=== PATIENT | male | born 1955 | race Caucasian/White ===

== ENCOUNTER 2018-08-27 09:07 | Day surgery (SDC) | payer MEDICARE ==
[~2018-08-27] VITALS: Ht 188 cm; Wt 70.9 kg
[~2018-08-27 09:07] MED LIST: BUSPAR10 MG PO; CYMBALTA30 MG PO; NEXIUM20 MG PO
[2018-08-27 09:37] LABS: BASOPHILS 0.7 % (0-2); EOSINOPHILS 3.7 % (0-7); HEMATOCRIT 41.7 % (42.0-54.0); HEMOGLOBIN 14.7 g/dL (13.5-17.5); IMMATURE GRANULOCYTES 0.3 % (0-5); LYMPHOCYTES 21.7 % (15-50); MCH 33.6 pg (26.0-34.0); MCHC 35.3 g/dL (31.0-37.0); MCV 95.4 fL (80.0-100.0); MEAN PLATELET VOLUME 9.3 fL (7.4-10.4); MONOCYTES 13.7 % (2-11); NEUTROPHILS 59.9 % (40-80); PLATELET COUNT 199 10x3/uL (130-400); RBC 4.37 10x6/uL (4.20-6.10); RDW 13.7 % (11.5-14.5); WBC 7.5 10x3/uL (4.8-10.8)
[2018-08-27 09:44] LABS: APTT 25.9 SECONDS (22.8-39.4); INR 0.97 (0.85-1.17); PROTIME 12.4 SECONDS (11.6-15.0)
[2018-08-27 09:49] LABS: CALC OSMOLALITY 281 mosm/kg (275-300); CALCIUM 8.7 mg/dL (8.5-10.1); CARBON DIOXIDE 28.6 mmol/L (21.0-32.0); CHLORIDE - SERUM 100 mmol/L (98-107); CREATININE - SERUM 0.9 mg/dL (0.6-1.3); GLUCOSE 100 mg/dL (74-106); POTASSIUM - SERUM 4.4 mmol/L (3.5-5.1); SODIUM 141 mmol/L (136-145); UREA NITROGEN 14 mg/dL (7-18); eGFR NON AFRICAN AMERICAN > 90 mL/min (90-120)
[2018-08-27 10:10] VITALS: BP 148/100; Ht 188 cm; Wt 70.9 kg
--- NOTE | 2018-08-27 13:54 | NUR ---
1340 PT DRESSED, AWAKE & ALERT. BOTH HANDS TREMBLING. PT DECLINES OFFER OF JUICE & SODA. GIVEN D/C INFORMATION INCLUDING: MED REC, RTC APPT., [facility] D/C INSTRUCTIONS, SHEET WITH LIST OF NSAIDS TO VOID, HIGH FIBER HANDOUTS. PT VOICED UNDERSTANDING. TO PRIVATE CAR PER WHEELCHAIR BY NURSE. HOME WITH FRIEND. Eagle BARBOSA R.N.
--- NOTE | 2018-08-27 17:25 | HP ---
PATIENT: MELE ACOSTA MEDICAL RECORD: [id number] ACCOUNT: [id number] LOCATION:D.OPS : 55 ADMISSION DATE: 08/27/18 PCP: AMADOR PERALES MD HISTORY AND PHYSICAL EXAMINATION PREOPERATIVE DIAGNOSIS: History of adenocarcinoma of the colon. The patient is here for surveillance colonoscopy. He has had history of colon cancer and colovesicular fistula. He has been having some difficulty with healing of the ileostomy site at the medial aspect of the site. It still has not healed completely after about 3 years. HOME MEDICINES: Nexium. ALLERGIES: HYDROCODONE. SOCIAL HISTORY: Smoker. PAST MEDICAL AND SURGICAL HISTORY: Gastroesophageal reflux, esophageal spasms, anxiety, and depression. PHYSICAL EXAMINATION: GENERAL: The patient does not appear acutely ill. HEENT: Face is ludin. CARDIOVASCULAR: Regular rhythm. PULMONARY: Nonlabored. ABDOMEN: There appears to be an incisional hernia at the ileostomy takedown site. IMPRESSION: History of adenocarcinoma of the colon, in need of surveillance colonoscopy. PLAN: Plan will be surveillance colonoscopy. TRANSINT:[id number] Voice Confirmation ID: [id number] DOCUMENT ID: [id number] BO IQBAL MD at 1725 CC: AMADOR PERALES [id number] DICTATION DATE: 08/27/18 1214 ELECTRONICS COMPUTER MECHANIC: 08/27/18 1248 [facility] 08/27/18 [id number] [place] [address]
--- NOTE | 2018-08-27 17:25 | OP ---
PATIENT NAME: MELE ACOSTA MEDICAL RECORD: [id number] :55 LOCATION:D.OPS ADMISSION DATE: SURGEON: IRON IQBAL MD DATE OF OPERATION: 08/27/2018 PREOPERATIVE DIAGNOSIS: History of adenocarcinoma of colon in need of surveillance colonoscopy. POSTOPERATIVE DIAGNOSES: History of adenocarcinoma colon in need of surveillance colonoscopy with 2 new colon polyps. PROCEDURES: 1. Total colonoscopy to cecum. 2. Hot biopsy forceps polypectomies times 2. 3. Cold endoscopic biopsies of the anastomosis. SURGEON: Iron Iqbal MD OPERATOR CAVITY PUMP: None. BLOOD LOSS: Minimal. ANESTHESIA: IV sedation. COMPLICATIONS: None. The risks, possible complications, and alternatives to the procedure were explained to the patient. He elects to proceed. ENDOSCOPIC COURSE: The patient was conveyed to the endoscopy suite electively on 08/27/2018. IV sedation was induced by the anesthesia staff. The patient was placed in the Pope position. A digital rectal examination was performed. The prostate was symmetric without nodules and somewhat enlarged. A colonoscope was inserted through the anus. It was easily advanced to the cecum. The prep was marginal. I slowly withdrew the endoscope. I irrigated and aspirated extensively. Two polyps were noted. One polyp was best seen with narrow band imaging. It was a 1.0 cm sessile polyp. The other polyp was a larger and it was semi-pedunculated and was a 2.3 cm polyp. It was removed in its entirety utilizing the hot biopsy forceps polypectomy technique. I then continued to withdraw the endoscope. Cold endoscopic biopsies were obtained of the anastomosis. A retroflexed view was obtained in the rectum. I then unretroflexed the scope and removed it under direct vision. I will see the patient in my office in 2-3 weeks. I will plan for his next surveillance colonoscopy to take place in 3 years. TRANSINT:[id number] Voice Confirmation ID: [id number] DOCUMENT ID: [id number] OPERATIVE REPORT [id number] MELE ACOSTA IRON IQBAL MD at 6004 CC: AMADOR PERALES [id number] DICTATION DATE: 08/27/18 1333 CENTRAL AISLE CASHIER: 08/27/18 1344 [facility] 08/27/18 [facility] [address] [place] [address]
== END 2018-08-27 13:40 | disposition home or self-care (01) ==
LOC: D.OPS 09:07
PROVIDERS: Anesthesiology; ATTEND Surgery
DX: Z12.11 Encounter for screening for malignant neoplasm of colon (principal); D12.4 Benign neoplasm of descending colon; D12.5 Benign neoplasm of sigmoid colon; Z85.038 Personal history of other malignant neoplasm of large intestine; Z01.812 Encounter for preprocedural laboratory examination; Z88.5 Allergy status to narcotic agent; F17.200 Nicotine dependence, unspecified, uncomplicated; K21.9 Gastro-esophageal reflux disease without esophagitis; F41.9 Anxiety disorder, unspecified; F32.9 Major depressive disorder, single episode, unspecified

== ENCOUNTER 2018-10-23 13:17 | Observation (INO) | payer MEDICARE ==
--- NOTE | 2018-10-23 14:03 | NUR ---
PT TO FLOOR VIA WHEELCHAIR. A/O X 4. UP WITH ASSISTANCE. IV SITED TO R FA, 22G, PATENT, DRSG C/D/I, NO REDNESS OR EDEMA. RM AIR. VITALS STABLE AT THIS TIME. TELE APPLIED, 74 NORMAL SINUS. DENIES PAIN AT THIS TIME. BREATHING EVEN AND UNLABORED. FALL PRECAUTIONS IN PLACE. GOWN APPLIED. SR UP X 2. NON SKID SOCKS ON. BED LOWERED AND LOCKED. CL IN REACH. WILL CTM
--- NOTE | 2018-10-23 14:43 | NUR ---
20 G IV SITED TO L HAND, PATENT, NO REDNESS OR EDEMA NOTED, DRSG C/D/I.
[2018-10-23 14:46] VITALS: BP 139/94; BMI 18.6
[2018-10-23 15:07] LABS: ALBUMIN 3.8 g/dL (3.4-5.0); ALKALINE PHOSPHATASE 57 U/L (46-116); ALT (SGPT) 157 U/L (10-68); AMYLASE - SERUM 45 U/L (25-115); BILIRUBIN - DIRECT 0.35 mg/dL (0.00-0.30); BILIRUBIN - INDIRECT 0.76 mg/dL (0.00-1.00); BILIRUBIN - TOTAL 1.11 mg/dL (0.2-1.3); CREATINE KINASE 40 UL (21-232); LIPASE 297 U/L (73-393); PRO BNP 120 pg/mL (0-125)
--- NOTE | 2018-10-23 15:09 | NUR ---
DC RECINOS STATED THAT PT MAY EAT AFTER CTA. WILL ORDER CARDIAC DIET. NO FURTHER ORDERS AT THIS TIME.
[2018-10-23 15:12] LABS: TROPONIN-I < 0.017 ng/mL (0.000-0.060)
[2018-10-23 15:20] VITALS: BP 139/94
--- NOTE | 2018-10-23 16:15 | NUR ---
PT TO CT VIA WHEELCHAIR
--- NOTE | 2018-10-23 20:15 | NUR ---
RESUMING PT CARE. PT IS ALERT LAYING IN BED. NO C/O VOICED. NO S/S FOF DISTRESS NOTED. BED IN LOW POSITION WITH CALL LIGHT IN REACH. SIDE RAILS UP X 2. WILL CONTINUE TO MONITOR PT AND FOLLOW PLAN OF CARE.
[2018-10-23 20:17] VITALS: BP 120/78
[2018-10-23 23:48] VITALS: BP 129/73
--- NOTE | 2018-10-24 02:10 | NUR ---
I have reviewed this patient and I concur with the Shift Assessment completed by the Licensed Practical Nurse today this shift.
[2018-10-24 05:20] VITALS: BP 129/79
[2018-10-24 05:49] LABS: BASOPHILS 0.8 % (0-2); EOSINOPHILS 10.1 % (0-7); HEMATOCRIT 33.8 % (42.0-54.0); HEMOGLOBIN 11.9 g/dL (13.5-17.5); IMMATURE GRANULOCYTES 0.5 % (0-5); LYMPHOCYTES 26.1 % (15-50); MCH 33.6 pg (26.0-34.0); MCHC 35.2 g/dL (31.0-37.0); MCV 95.5 fL (80.0-100.0); MEAN PLATELET VOLUME 10.8 fL (7.4-10.4); MONOCYTES 15.1 % (2-11); NEUTROPHILS 47.4 % (40-80); PLATELET COUNT 169 10x3/uL (130-400); RBC 3.54 10x6/uL (4.20-6.10); RDW 13.2 % (11.5-14.5); WBC 6.5 10x3/uL (4.8-10.8)
[2018-10-24 06:14] LABS: ALBUMIN 2.9 g/dL (3.4-5.0); ALKALINE PHOSPHATASE 44 U/L (46-116); ALT (SGPT) 119 U/L (10-68); BILIRUBIN - TOTAL 0.85 mg/dL (0.2-1.3); CALC OSMOLALITY 276 mosm/kg (275-300); CALCIUM 8.2 mg/dL (8.5-10.1); CARBON DIOXIDE 28.6 mmol/L (21.0-32.0); CHLORIDE - SERUM 102 mmol/L (98-107); CREATININE - SERUM 0.8 mg/dL (0.6-1.3); GLUCOSE 92 mg/dL (74-106); POTASSIUM - SERUM 3.8 mmol/L (3.5-5.1); PROTEIN - SERUM 5.9 g/dL (6.4-8.2); SODIUM 139 mmol/L (136-145); UREA NITROGEN 9 mg/dL (7-18); eGFR NON AFRICAN AMERICAN > 90 mL/min (90-120)
[2018-10-24 06:42] LABS: TROPONIN-I < 0.017 ng/mL (0.000-0.060)
[2018-10-24 08:00] VITALS: BP 138/67
--- NOTE | 2018-10-24 09:24 | NUR ---
I have reviewed this patient and I concur with the Shift Assessment completed by the Licensed Practical Nurse today this shift.
--- NOTE | 2018-10-24 09:25 | NUR ---
MORNING ROUNDS MADE. PT SITTING UP IN BED RESTING. A/O X 4. UP WITH ASSISTANCE X 1. PT DENIES PAIN AT THIS TIME. R FA IV WITH D5NS @ 75 ML/HR, PATENT, NO REDNESS OR EDEMA NOTED. IV TO L HAND, PATENT, SL, NO REDNESS OR EDEMA NOTED, DRSG C/D/I. BREATHING EVEN AND UNLABORED. NICOTINE PATCH APPLIED TO L SHOULDER. NO EDEMA NOTED. LUNGS CLEAR. FALL PRECAUTIONS IN PLACE. NON SKID SOCKS ON. BED LOWERED AND LOCKED. CL IN REACH. WILL CTM.
--- NOTE | 2018-10-24 09:35 | NUR ---
VITALS STABLE. TOOK MEDS WITHOUT DIFFICULTY
--- NOTE | 2018-10-24 11:06 | NUR ---
PT HEARD YELLING "NURSE", UPON ENTERING PT ROOM, PT STATED THAT HE HAD HAD A BM IN HIS PANTS. ASSISTED WELDING PANTOGRAPH OPERATOR AND PT TO BATHROOM AND INTO SHOWER. NEW LINENS APPLIED TO BED. STAND BY ASSIST WHILE PT IN SHOWER DUE TO WEAKNESS. ATIVAN GIVEN TO IV IN L FA, PATENT, DRSG C/D/I. NO FURTHER CONERNS AT THIS TIME. FALL PRECAUTIONS IN PLACE. BED LOWERED AND LOCKED. CL IN REACH. WILL CTM.
[2018-10-24 12:29] VITALS: BMI 18.6
[2018-10-24 12:38] VITALS: BP 130/87
--- NOTE | 2018-10-24 13:35 | NUR ---
PT TO MRI VIA WHEELCHAIR
[2018-10-24 16:30] VITALS: BP 129/81
--- NOTE | 2018-10-24 19:48 | NUR ---
PATIENT SITTING UP IN BED. NO COMPLAINTS AT THIS TIME. NO DISTRESS NOTED.
[2018-10-24 20:00] VITALS: BP 133/75
[2018-10-25] VITALS: BP 130/85
--- NOTE | 2018-10-25 02:29 | NUR ---
PATIENT LAYING IN BED WITH NO COMPLAINTS AT THIS TIME. NO DISTRESS NOTED.
[2018-10-25 04:00] VITALS: BP 126/80
[2018-10-25 07:14] LABS: HEMATOCRIT 35.5 % (42.0-54.0); HEMOGLOBIN 12.4 g/dL (13.5-17.5); IMMATURE GRANULOCYTES 0.4 % (0-5); LYMPHOCYTES 32.3 % (15-50); MCH 33.6 pg (26.0-34.0); MCHC 34.9 g/dL (31.0-37.0); MCV 96.2 fL (80.0-100.0); MEAN PLATELET VOLUME 10.5 fL (7.4-10.4); MONOCYTES 15.6 % (2-11); NEUTROPHILS 34.7 % (40-80); PLATELET COUNT 174 10x3/uL (130-400); RBC 3.69 10x6/uL (4.20-6.10); RDW 13.1 % (11.5-14.5); WBC 5.3 10x3/uL (4.8-10.8)
--- NOTE | 2018-10-25 07:20 | NUR ---
PT CALLED OUT, REQUESTING MORNING MEDICATIONS. EDUCATED PT REGARDING TIME NEXT DOSE DUE. PT VOICES UNDERSTANDING. HE QUESTIONS STAFF REGARDING D/C. INFORMED PT THAT NO NEW ORDERS FOR D/C HAD BEEN RECIEVED AT THIS TIME. PT DENIES PAIN AT THIS TIME. IV TO RIGHT FOREARM WITH D5NS @ 75ML/HR INFUSING VIA PUMP. SITE WITHOUT REDNESS OR EDEMA. SALINE LOCK TO LEFT WRIST, SITE WITHOUT REDNESS OR EDEMA. DENIES FURTHER NEEDS. ENCOURAGED TO CALL WITH NEEDS. CL WITHIN REACH. CONTINUE POC
[2018-10-25 07:36] VITALS: BP 126/87
[2018-10-25 07:43] LABS: ALBUMIN 2.9 g/dL (3.4-5.0); ALKALINE PHOSPHATASE 44 U/L (46-116); ALT (SGPT) 115 U/L (10-68); CALCIUM 8.2 mg/dL (8.5-10.1); CHLORIDE - SERUM 105 mmol/L (98-107); CREATININE - SERUM 0.8 mg/dL (0.6-1.3); GLUCOSE 96 mg/dL (74-106); PROTEIN - SERUM 5.8 g/dL (6.4-8.2); SODIUM 141 mmol/L (136-145); eGFR NON AFRICAN AMERICAN > 90 mL/min (90-120)
[2018-10-25 07:47] LABS: CALC OSMOLALITY 278 mosm/kg (275-300); POTASSIUM - SERUM 3.2 mmol/L (3.5-5.1); UREA NITROGEN 6 mg/dL (7-18)
[2018-10-25] MEDS ORDERED: MEDROL DOSE PACK4 MG PO (07:47)
[2018-10-25] MEDS ORDERED: LIBRIUM25 MG PO (07:49)
--- NOTE | 2018-10-25 08:26 | NUR ---
HARD SCRIPT GIVEN FOR LIBRIUM TAPER.
--- NOTE | 2018-10-25 09:10 | NUR ---
DISCHARGE PAPERWORK PROVIDED TO PT WITH FOLLOW UP APPOINTMENT AND PRESCRIPTION. STRESSED THE IMPORTANCE OF NOT TAKING LIBRIUM IF CONSUMING ALCOHOL. PT VOICES UNDERSTANDING. ALSO EDUCATED PT REGARDING NICOTENE PATCH. IF GOING TO SMOKE THE NEED TO REMOVE PATCH. PT VOICES UNDERSTANDING. PT AWAITING RIDE FOR D/C
--- NOTE | 2018-10-25 09:20 | MORECARE ---
CASE MANAGEMENT DISCHARGE SUMMARY PATIENT: MELE ACOSTA UNIT: [id number] ADM DATE: 10/23/18 AGE: 62 : 55 SEX: M ROOM/BED: D.5581 AUTHOR: VALENTINE,DOC PHYSICIAN: REFERRING PHYSICIAN: AMADOR PERALES MD DATE OF SERVICE: 10/25/18 Discharge Plan Patient Name: MELE ACOSTA Facility: [facility]:[place] : 1955 Planned Disposition: Home Anticipated Discharge Date: 10/25/18 Discharge Date: Expected LOS: 2 Initial Reviewer: [email or web address] Initial Review Date: 10/25/2018 Generated: 10/25/18 10:19 am Comments DCP- Discharge Planning Updated by [email or web address]: Robby Estevez on 10/25/18 8:[address] Patient Name: MELE ACOSTA Admission Status: Urgent Accout number: [id number] Admission Date: 10-23-2018 : 1955 Admission Diagnosis: Attending: AMADOR PERALES Current LOS: 2 Anticipated DC Date: 10-25-2018 Planned Disposition: Home Primary Insurance: [facility] MEDICARE SOLUTIONS Discharge Planning Comments: CM RECEIVED DISCHARGE ORDER, MET WITH PT IN ROOM TO DISCUSS DISCHARGE PLANNING AND NEEDS. PT REPORTS LIVING AT HOME INDEPENDENTLY AND ALONE. PT HAS NO MEDICAL EQUIPMENT AND NO OUTSIDE SERVICES ASSISTING IN THE HOME. CM DISCUSSED AVAILABILITY OF HOME HEALTH, REHAB SERVICES AND MEDICAL EQUIPMENT. PT DENIES DISCHARGE NEEDS, REPORTS HIS FRIEND IS BRINGING PT'S TRUCK SO PT CAN DRIVE HIMSELF HOME TODAY. CM DISCUSSED ALCHOLISM SUPPORT GROUPS THAT ARE LOCALLY AVAILABLE, OFFERED COMMUNITY LISTING. PT DECLINED AND REPORTS BEING ACTIVE AT [employer] FOR THE PAST 8 YEARS. QUALITY ANALYST NURSE NOTIFIED. Sandwich Wrapper: Robby Estevez DCPIA - Discharge Planning Initial Assessment Updated by [id number]: Robby Estevez on 10/25/18 9:15 am * Is the patient Alert and Oriented? Yes * How many steps to enter\exit or inside your home? NONE * PCP DR. PERALES * Pharmacy [facility], [address] * Preadmission Environment Home Alone * ADLs Independent * Equipment None * Other Equipment NO MEDICAL EQUIPMENT PROVIDER PREFERENCE * List name and contact numbers for known caregivers / representatives who currently or will assist patient after discharge: AUGUSTO ACOSTA, EX SPOUSE, * Verbal permission to speak to the caregivers and representatives has been obtained from the patient. N/A * Community resources currently utilized None * Please name any agencies selected above. NONE * Additional services required to return to the preadmission environment? No * Can the patient safely return to the preadmission environment? Yes * Has this patient been hospitalized within the prior 30 days at any hospital? No Patient Name: MELE ACOSTA Page [phone] at 0920 All edits/amendments must be made on the electronic document DICTATION DATE: 10/25/18918 SUPERVISOR COMMISSARY PRODUCTION: TIFF 10/25/18918 RPT#: [id number] DC DATE: STATUS: ADM IN [facility] [address] [place] [address] END OF REPORT
--- NOTE | 2018-10-25 09:48 | NUR ---
SALINE LOC TO LEFT WRIST D/C, IV TO RIGHT FOREARM D/C FOR DISCHARGE. CATHS INTACT TO BOTH CATHETERS. PT DISCHARGED WITH PERSONAL BELONGINGS TO PRIVATE VEHICLE.
--- NOTE | 2018-10-28 10:06 | EC ---
PATIENT:MELE ACOSTA DATE OF SERVICE: 10/23/18 SEX: M MEDICAL RECORD: [id number] DATE OF : 55 LOCATION:D.M2 D.213 AGE OF PATIENT: 62 ADMISSION DATE: 10/23/18 REFERRING PHYSICIAN: INTERPRETING PHYSICIAN: FLORECITA DYSON MD ECHOCARDIOGRAM REPORT ECHO CHARGES 4 ECHO COMPLETE Date: 10/24/18 CLINICAL DIAGNOSIS: AMATO, CP ECHOCARDIOGRAPHIC MEASUREMENTS (adult normal given) AC root (d.<3.7cm) 3.6 cm LV Septum d (<1.2 cm> 0.8 cm Valve Excursion 2.0 cm LV Septum (systole) 1.1 cm Left Atria (s.<4.0cm> 2.2 cm LVPW d(<1.2cm) 0.9 cm RV (d.<2.3cm) 3.1 cm LVPW (sytole) 1.1 cm LV diastole(<5.6CM) 5.0 cm MV E-F(>70mm/sec) cm LV systole 3.9 cm LVOT Diameter 1.9 cm MV exc.(>10mm) cm Est.ejection fraction (50-75%) % DOPPLER: LVIT cm/sec A 80 cm/sec E 66 cm/sec LA cm/sec RVSP 25.7 mmHg LVOT 115 cm/sec AOP1/2T m/s Asc. Ao 112 cm/sec RVOT 59 cm/sec RA cm/sec PA 62 cm/sec AV Gradient Peak 5.0 mmHg AV Mean 3.4 mmHg AV Area 2.8 cm MV Gradient Peak 3.4 mmHg MV Mean 1.5 mmHg MV Area cm COMMENTS: Ell Tutor: Usman CRUZ Supervisor Microfilm Duplicating Unit: 3 Dr. Estrada TAPE# PACS Pericardial Effusion N DATE OF SERVICE: Adequate 2D, color flow, spectral Doppler, and M-Mode. No LVH. LV internal dimension is normal. Wall motion is normal. EF is greater than or equal to 55%. Aortic valve is tricuspid. No evidence of stenosis by Doppler interrogation. Left atrium is normal at 3.2 cm. Mitral valve shows no prolapse. Trace MR. Right-sided chambers grossly normal. Trace TR. TRANSINT:[id number] Voice Confirmation ID: [id number] DOCUMENT ID: [id number] ECHOCARDIOGRAM REPORT [id number] KARLA,MELE NEDRA FLORECITA DYSON MD at 1006 CC: [id number] DICTATION DATE: 10/24/18 1104 MAIL OPENER: 10/24/18 1316 DIS IN 10/25/18 [facility] [address] [place] [address]
== END 2018-10-25 09:57 | disposition home or self-care (01) ==
LOC: D.M2 13:17 → OBSVTIME 13:17 → D.M2 13:17
PROVIDERS: ADMIT Family Medicine; ATTEND Family Medicine
DX: M43.17 Spondylolisthesis, lumbosacral region (principal); I70.213 Atherosclerosis of native arteries of extremities with intermittent claudication, bilateral legs; R07.9 Chest pain, unspecified; F41.9 Anxiety disorder, unspecified; K21.9 Gastro-esophageal reflux disease without esophagitis; F10.20 Alcohol dependence, uncomplicated; F17.210 Nicotine dependence, cigarettes, uncomplicated; R06.00 Dyspnea, unspecified; R63.6 Underweight; Z68.1 Body mass index [BMI] 19.9 or less, adult; F33.1 Major depressive disorder, recurrent, moderate

== ENCOUNTER → 2020-01-12 21:31 | Outpatient (CLI) | payer MEDICARE, MEDICAID ==
[2019-07-30] VITALS: BMI 24.4
[~2020-01-12 21:31] MED LIST changes: +LIBRIUM25 MG PO; +MEDROL DOSE PACK4 MG PO
== END | disposition home or self-care (01) ==
LOC: D.LABREF 21:31
PROVIDERS: ATTEND Podiatrist Foot & Ankle Surgery
DX: I96 Gangrene, not elsewhere classified (principal)

== ENCOUNTER 2020-02-02 20:12 | Inpatient (IN) | payer MEDICARE, MEDICAID ==
[~2020-02-02] VITALS: Ht 188 cm; Wt 62.3 kg
[2020-02-02] MEDS ORDERED: HYDROCODON-ACE1 EA10 PO (20:47)
[2020-02-02 21:25] LABS: BASOPHILS 0.2 % (0-2); EOSINOPHILS 0 % (0-7); HEMATOCRIT 35.8 % (42.0-54.0); HEMOGLOBIN 12.3 g/dL (13.5-17.5); IMMATURE GRANULOCYTES 0.3 % (0-5); LYMPHOCYTES 9.6 % (15-50); MCH 31.6 pg (26.0-34.0); MCHC 34.4 g/dL (31.0-37.0); MEAN PLATELET VOLUME 9.7 fL (7.4-10.4); MONOCYTES 9.2 % (2-11); NEUTROPHILS 80.7 % (40-80); RBC 3.89 10x6/uL (4.20-6.10); RDW 16.3 % (11.5-14.5); WBC 9.4 10x3/uL (4.8-10.8)
[2020-02-02 21:37] LABS: CALC OSMOLALITY 268 mosm/kg (275-300); CARBON DIOXIDE 20.2 mmol/L (21.0-32.0); CHLORIDE - SERUM 94 mmol/L (98-107); CREATININE - SERUM 0.9 mg/dL (0.6-1.3); GLUCOSE 84 mg/dL (74-106); POTASSIUM - SERUM 3.2 mmol/L (3.5-5.1); SODIUM 135 mmol/L (136-145); UREA NITROGEN 12 mg/dL (7-18); eGFR NON AFRICAN AMERICAN 90 mL/min (90-120)
[2020-02-02 21:51] LABS: APTT 26.4 SECONDS (22.8-39.4); INR 0.94 (0.85-1.17); PROTIME 12.6 SECONDS (11.6-15.0)
[2020-02-02 21:53] LABS: ALBUMIN 3.3 g/dL (3.4-5.0); ALKALINE PHOSPHATASE 69 U/L (30-120); ALT (SGPT) 44 U/L (10-68); BILIRUBIN - TOTAL 0.72 mg/dL (0.2-1.3); CKMB 5.3 U/L (0.0-3.6); CREATINE KINASE 138 UL (21-232); MAGNESIUM - SERUM 1.6 mg/dL (1.8-2.4); PROTEIN - SERUM 7.5 g/dL (6.4-8.2)
[2020-02-02 21:54] LABS: TROPONIN-I < 0.017 ng/mL (0.000-0.060)
[2020-02-02 22:12] LABS: PLATELET COUNT 105 10x3/uL (130-400)
[2020-02-03] VITALS (7 sets, daily range): BP systolic 124–142; BP diastolic 73–88; BMI 17.5; BMI 17.4
--- NOTE | 2020-02-03 01:31 | NUR ---
TEGADERM PLACED OVER OPEN TRACH AREA.PER EDP
[2020-02-03] MEDS ORDERED: PROZAC20 MG PO (01:59)
--- NOTE | 2020-02-03 02:00 | NUR ---
REC'D PATIENT FROM ER. PATIENT HAS 2 SKIN TEARS ON RIGHT ARM, ONE BLEEDING SLIGHTLY. CLEANED BOTH AND APPLIED BANDAID. PATIENT HAS TWO LARGER WOUNDS TO HIS RIGHT LEG. PATIENT STATED HE SPILLED "HOT RAMEN NOODLES" WHILE HE WAS EATING. 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 STITCHES ARE STILL INTACT TO THE TOES. I APPLIED A DRESSING TO TOES/FOOT. PATIENT HAD A VERY SOILED DRESSING TO HIS LEFT FOOT. I REMOVED THE DRESSING AND CLEANED HIS FOOT AND TOES. PATIENT HAS DARKENED AREAS/WOUNDS TO HIS LEFT 2ND AND 3RD TOES AND HIS 4TH TOE IS PARTIALLY AMPUTATED. PATIENT HAS SCATTERED SORES/SCABS AND BRUISES ON HIS BODY. PATIENT STATED THE WOUNDS FROM HIS FEET ARE RELATED TO POOR CIRCULATION WHILE ON A VENT IN [facility] FOR TWO MONTHS.
[2020-02-03 07:37] LABS: BASOPHILS 0.3 % (0-2); EOSINOPHILS 1.7 % (0-7); HEMATOCRIT 32.8 % (42.0-54.0); IMMATURE GRANULOCYTES 0.5 % (0-5); MCH 30.4 pg (26.0-34.0); MCHC 33.5 g/dL (31.0-37.0); MCV 90.6 fL (80.0-100.0); MEAN PLATELET VOLUME 9.6 fL (7.4-10.4); MONOCYTES 12.2 % (2-11); NEUTROPHILS 62.3 % (40-80); PLATELET COUNT 106 10x3/uL (130-400); RBC 3.62 10x6/uL (4.20-6.10); RDW 16.1 % (11.5-14.5); WBC 7.6 10x3/uL (4.8-10.8)
[2020-02-03 07:45] LABS: ALBUMIN 3.1 g/dL (3.4-5.0); ALKALINE PHOSPHATASE 64 U/L (30-120); ALT (SGPT) 40 U/L (10-68); BILIRUBIN - TOTAL 0.78 mg/dL (0.2-1.3); CALC OSMOLALITY 265 mosm/kg (275-300); CALCIUM 8.4 mg/dL (8.5-10.1); CARBON DIOXIDE 24.3 mmol/L (21.0-32.0); CHLORIDE - SERUM 98 mmol/L (98-107); CREATININE - SERUM 0.8 mg/dL (0.6-1.3); GLUCOSE 73 mg/dL (74-106); POTASSIUM - SERUM 3.1 mmol/L (3.5-5.1); PROTEIN - SERUM 6.8 g/dL (6.4-8.2); SODIUM 134 mmol/L (136-145); UREA NITROGEN 11 mg/dL (7-18); eGFR NON AFRICAN AMERICAN > 90 mL/min (90-120)
--- NOTE | 2020-02-03 15:39 | NUR ---
I have reviewed this patient and I concur with the Shift Assessment completed by the Licensed Practical Nurse today this shift.
--- NOTE | 2020-02-04 00:12 | NUR ---
I have reviewed this patient and I concur with the Shift Assessment completed by the Licensed Practical Nurse today this shift.
[2020-02-04 04:00] VITALS: BP 141/86
--- NOTE | 2020-02-04 05:39 | NUR ---
TELE MONITORS CALLED STATED PT HEART RATE DROPPED DOWN TO 31 WITH 3RD DEGREE BLOCK. PT RESTING IN BED EYES CLOSED. NO SIGNS OF DISTRESS. BREATHING EVEN AND UNLABORED. EASY TO AROUSE TO TOUCH. WILL CONTINUE TO CLOSELY MONITOR.
[2020-02-04 06:02] LABS: BASOPHILS 0.5 % (0-2); EOSINOPHILS 4.8 % (0-7); HEMATOCRIT 31.9 % (42.0-54.0); HEMOGLOBIN 11.1 g/dL (13.5-17.5); IMMATURE GRANULOCYTES 0.7 % (0-5); MCH 31.5 pg (26.0-34.0); MCHC 34.8 g/dL (31.0-37.0); MCV 90.6 fL (80.0-100.0); MEAN PLATELET VOLUME 9.7 fL (7.4-10.4); MONOCYTES 11.6 % (2-11); NEUTROPHILS 50.4 % (40-80); PLATELET COUNT 95 10x3/uL (130-400); RBC 3.52 10x6/uL (4.20-6.10)
[2020-02-04 06:03] LABS: WBC 5.6 10x3/uL (4.8-10.8)
[2020-02-04 06:19] LABS: CALCIUM 8.9 mg/dL (8.5-10.1); CHLORIDE - SERUM 99 mmol/L (98-107); CREATININE - SERUM 0.6 mg/dL (0.6-1.3); GLUCOSE 90 mg/dL (74-106); SODIUM 135 mmol/L (136-145); eGFR NON AFRICAN AMERICAN > 90 mL/min (90-120)
[2020-02-04 06:30] LABS: CALC OSMOLALITY 267 mosm/kg (275-300); CARBON DIOXIDE 31.2 mmol/L (21.0-32.0); UREA NITROGEN 7 mg/dL (7-18)
[2020-02-04 06:34] LABS: POTASSIUM - SERUM 2.5 mmol/L (3.5-5.1)
[2020-02-04 06:52] LABS: PLATELET ESTIMATE DECREASED
--- NOTE | 2020-02-04 07:15 | NUR ---
REC'D IN BED AWAKE AND ALERT. RESP EVEN AND UNLABORED WITH NO DISTRESS NOTED. CAN EXPRESS NEEDS AND NO C/O NOTED OR VOICED. ASSESSMENT COMPLETED. C/L IN REACH AT BEDSIDE.
[2020-02-04 09:58] VITALS: BP 133/82
--- NOTE | 2020-02-04 10:31 | NUR ---
PT WAS GOTTEN IN SHOWER VIA PT AND THIS NURSE BATHE PT AND CHANGED LINEN AT THIS TIME. DRESSING TO BILATERAL FEET WAS CHANGED WELL. TOLERATED WELL. C/L IN REACH AT BEDSIDE.
[2020-02-04 12:30] LABS: CALCIUM 8.9 mg/dL (8.5-10.1); CARBON DIOXIDE 30.1 mmol/L (21.0-32.0); CHLORIDE - SERUM 97 mmol/L (98-107); CREATININE - SERUM 0.7 mg/dL (0.6-1.3); GLUCOSE 106 mg/dL (74-106); SODIUM 133 mmol/L (136-145); eGFR NON AFRICAN AMERICAN > 90 mL/min (90-120)
[2020-02-04 12:36] LABS: CALC OSMOLALITY 264 mosm/kg (275-300); UREA NITROGEN 9 mg/dL (7-18)
[2020-02-04 12:39] LABS: POTASSIUM - SERUM 2.9 mmol/L (3.5-5.1)
[2020-02-04 13:33] VITALS: BP 109/69
[2020-02-04 18:25] VITALS: BP 124/75
--- NOTE | 2020-02-04 18:45 | NUR ---
I have reviewed this patient and I concur with the Shift Assessment completed by the Licensed Practical Nurse today this shift.
[2020-02-04 20:00] VITALS: BP 115/70
[2020-02-05 04:00] VITALS: BP 126/83
[2020-02-05 04:29] LABS: BASOPHILS 0.4 % (0-2); EOSINOPHILS 5.6 % (0-7); HEMATOCRIT 31.1 % (42.0-54.0); HEMOGLOBIN 10.6 g/dL (13.5-17.5); IMMATURE GRANULOCYTES 1.1 % (0-5); LYMPHOCYTES 31.9 % (15-50); MCH 31.1 pg (26.0-34.0); MCHC 34.1 g/dL (31.0-37.0); MCV 91.2 fL (80.0-100.0); MEAN PLATELET VOLUME 9.7 fL (7.4-10.4); MONOCYTES 13.4 % (2-11); NEUTROPHILS 47.6 % (40-80); RBC 3.41 10x6/uL (4.20-6.10); WBC 5.4 10x3/uL (4.8-10.8)
[2020-02-05 04:31] LABS: PLATELET COUNT 121 10x3/uL (130-400)
[2020-02-05 04:50] LABS: CALC OSMOLALITY 270 mosm/kg (275-300); CALCIUM 9.1 mg/dL (8.5-10.1); CARBON DIOXIDE 33.1 mmol/L (21.0-32.0); CHLORIDE - SERUM 101 mmol/L (98-107); CREATININE - SERUM 0.6 mg/dL (0.6-1.3); GLUCOSE 90 mg/dL (74-106); POTASSIUM - SERUM 3.5 mmol/L (3.5-5.1); SODIUM 136 mmol/L (136-145); UREA NITROGEN 11 mg/dL (7-18); eGFR NON AFRICAN AMERICAN > 90 mL/min (90-120)
--- NOTE | 2020-02-05 06:19 | NUR ---
I have reviewed this patient and I concur with the Shift Assessment completed by the Licensed Practical Nurse today this shift.
[2020-02-05 08:12] VITALS: BP 126/85
--- NOTE | 2020-02-05 11:31 | NUR ---
OT NOTE: ATTEMPTED THERAPY IN AM.. PT REFUSED STATING THAT HE DID NOT FEEL WELL. ENCOURAGED PT TO AT LEAST SIT UP IN CHAIR, BUT HE STATED THAT HE WOULD DO IT TOMORROW. DENNIS OBANDO, OTR/L
--- NOTE | 2020-02-05 11:37 | NUR ---
PT LAYING IN BED. NO NEEDS AT THIS TIME. CL IN REACH. WCTM
[2020-02-05 12:02] VITALS: BP 107/68
--- NOTE | 2020-02-05 12:43 | NUR ---
Nutrition follow-up: Pt receiving a low sodium diet PO intake has been fair Labs reviewed Wt: 130# Pt has been assessed with malnutrition RDN will order Ensure with meals RDN following.
[2020-02-05 14:11] VITALS: Ht 188 cm; Wt 62.3 kg
--- NOTE | 2020-02-05 15:17 | NUR ---
Rehab Note- Acute Inpatient Rehab prescreen order received. The patient has [facility] insurance and will require a PreAuth. Have initiated the PreAuth and faxed medical records to [facility] for review for possible auth for inpatient acute rehab stay. Will continue to await determination and follow at this time. Thank you for this referral! Delphine Elizondo RN Clinical Liaison, [facility] Rehab
--- NOTE | 2020-02-05 19:30 | NUR ---
PT IN BED, AAO X 3, RESP EVEN AND UNLABORED. PT REQUESTED PAIN MED AT THIS TIME. MEDICATED PER MD ORDER WITH TRAMADOL. NO DISTRESS NOTED, CL IN REACH, SR X 2.
[2020-02-05 20:00] VITALS: BP 105/67
[2020-02-06] VITALS (10 sets, daily range): BP systolic 85–126; BP diastolic 51–88
--- NOTE | 2020-02-06 00:37 | NUR ---
I have reviewed this patient and I concur with the Shift Assessment completed by the Licensed Practical Nurse today this shift.
[2020-02-06 05:32] LABS: BASOPHILS 0.4 % (0-2); EOSINOPHILS 4.6 % (0-7); HEMATOCRIT 30.9 % (42.0-54.0); HEMOGLOBIN 10.4 g/dL (13.5-17.5); IMMATURE GRANULOCYTES 1.5 % (0-5); LYMPHOCYTES 32.5 % (15-50); MCHC 33.7 g/dL (31.0-37.0); MONOCYTES 16.1 % (2-11); NEUTROPHILS 44.9 % (40-80); RBC 3.36 10x6/uL (4.20-6.10); RDW 16.2 % (11.5-14.5); WBC 5.4 10x3/uL (4.8-10.8)
[2020-02-06 05:45] LABS: PLATELET COUNT 149 10x3/uL (130-400)
[2020-02-06 05:50] LABS: CALC OSMOLALITY 276 mosm/kg (275-300); CALCIUM 9.4 mg/dL (8.5-10.1); CARBON DIOXIDE 31.1 mmol/L (21.0-32.0); CHLORIDE - SERUM 100 mmol/L (98-107); CREATININE - SERUM 0.7 mg/dL (0.6-1.3); GLUCOSE 96 mg/dL (74-106); SODIUM 138 mmol/L (136-145); eGFR NON AFRICAN AMERICAN > 90 mL/min (90-120)
[2020-02-06 06:00] LABS: UREA NITROGEN 14 mg/dL (7-18)
--- NOTE | 2020-02-06 07:48 | NUR ---
ALERT AND ORIENTED. LUNGS DIMINISHED BILATERALLY. HEART SOUNDS S1 AND S2 HEARD IN ALL JON. BOWEL SOUNDS ACTIVE X 4. IV TO LFA PATENT WITHOUT REDNESS. O2 IN PLACE AT 3L NC. DENIES NEEDS. BED LOW. CALL VALENTINE AND PERSONAL ITEMS IN REACH. BED ALARM ON. WILL CONTINUE TO MONITOR.
--- NOTE | 2020-02-06 11:01 | NUR ---
PREOP MEDS GIVEN AND PATIENT TAKEN FOR PROCEDURE.
--- NOTE | 2020-02-06 13:22 | NUR ---
PATIENT RETURNED FROM PROCEDURE. VITALS STABLE. RONNIE C/D/I.
--- NOTE | 2020-02-06 13:43 | NUR ---
OT NOTE: ROLLING SIDE TO SIDE WITH MIN/MOD ASSIST; SUPINE TO SIT WITH MOD ASSIST; EOB SITTING WITH FAIR BALANCE; UE/LE AROM EXS ; SIMPLE GROOMING AND FEEDING WITH SET UP DENNIS OBANDO, OTR/L [phone]
--- NOTE | 2020-02-06 14:50 | NUR ---
Rehab Note- Received a call from Yayo with [facility] stating that their medical assistant dermatology has denied the patient an acute inpatient acute rehab stay that his needs can be met at a lower level of care such as a SNF. A peer to peer can be set up before 02/09/2020 @ 6979 by contacting Yayo @ [phone] Ext [phone]. Left a VM for [facility]. Thank you for this referral! Delphine Elizondo RN CLinical Liaison, [facility] Rehab
--- NOTE | 2020-02-06 15:12 | NUR ---
DR DIAZ RICHARD D/T PATIENT BP 86/58. NO ACTIVE BLEEDING NOTED.
--- NOTE | 2020-02-06 15:33 | NUR ---
BOLUS DOSE NS STARTED PER ORDER.
--- NOTE | 2020-02-06 15:57 | NUR ---
OT NOTE: PT COMPLETED SUPINE TO SIT WITH CGA. PT COMPLETED EOB SITTING WITH SPV. PT COMPLETED FACE/HAND HYGIENE AT EOB WITH SETUP. [phone] THANK YOU,NIRALI RUTH
--- NOTE | 2020-02-06 16:06 | NUR ---
PATIENT BP 85/[address] DIAZ RICHARD.
--- NOTE | 2020-02-06 16:12 | NUR ---
SPOKE WITH DR PERALES'S NURSE WHO STATES WILL TALK TO DR PERALES AND CALL BACK.
--- NOTE | 2020-02-06 16:32 | NUR ---
SPOKE WITH DR PERALES'S NURSE WHO STATES TO CONTINUE TO MONITOR PATIENT IN CASE BECOMES SYMPTOMATIC WITH LOW BP. STATES PATIENT SOMETIMES RUNS LOW. BP NOW UP TO 98/58. WILL CONTINUE TO MONITOR.
--- NOTE | 2020-02-06 17:27 | NUR ---
PATIENT BP STILL 87/55 BUT REMAINS ASYMPTOMATIC.
--- NOTE | 2020-02-06 19:00 | NUR ---
BEDSIDE REPORT RECEIVED AND CARE OF PT ASSUMED. PT LYING IN HIGH ADAMSON'S POSITION WATCHING TV. IV TO LEFT FA SALINE LOCKED. WILL MONITOR FOR NEEDS.
--- NOTE | 2020-02-06 20:44 | NUR ---
GAVE ULTRAM 50 MG PO PER REQUEST FOR PAIN. WILL MONITOR FOR EFFECTIVENESS.
--- NOTE | 2020-02-06 20:44 | NUR ---
HS MEDICATIONS GIVEN. WILL CONTINUE TO MONITOR FOR NEEDS.
[2020-02-07 04:00] VITALS: BP 123/78
[2020-02-07 07:21] LABS: CALC OSMOLALITY 268 mosm/kg (275-300); CALCIUM 8.7 mg/dL (8.5-10.1); CHLORIDE - SERUM 101 mmol/L (98-107); CREATININE - SERUM 0.8 mg/dL (0.6-1.3); GLUCOSE 90 mg/dL (74-106); POTASSIUM - SERUM 4.1 mmol/L (3.5-5.1); SODIUM 135 mmol/L (136-145); UREA NITROGEN 11 mg/dL (7-18); eGFR NON AFRICAN AMERICAN > 90 mL/min (90-120)
--- NOTE | 2020-02-07 07:38 | NUR ---
ALERT AND ORIENTED. LUNGS DIMINISHED BILATERALLY. HEART SOUNDS S1 AND S2 HEARD IN ALL JON. BOWEL SOUNDS ACTIVE X 4. IV TO LFA PATENT WITHOUT REDNESS. DENIES NEEDS. BED LOW. CALL VALENTINE AND PERSONAL ITEMS IN REACH. WILL CONTINUE TO MONITOR.
[2020-02-07 09:34] VITALS: BP 107/70
--- NOTE | 2020-02-07 10:06 | NUR ---
DRSG CHANGED TO RIGHT UPPER THIGH PER ORDER. DRSGS CHANGED TO BILATERAL FEET.
[2020-02-07 13:32] VITALS: BP 92/57
[2020-02-07 17:45] VITALS: BP 84/63
--- NOTE | 2020-02-07 18:25 | NUR ---
RESTING IN BED. DENIES NEEDS. BED LOW. CALL VALENTINE AND PERSONAL ITEMS IN REACH. WILL CONTINUE TO MONITOR.
--- NOTE | 2020-02-07 19:41 | NUR ---
PATIENT RESTING IN BED WITH NO S/S OF DISTRESS. PATIENT DENIES NEEDS. BED IN LOWEST POSITION AND CL WITHIN REACH. ENCOURAGED THE PATIENT TO CALL IF HE HAS NEEDS. WILL CONTINUE TO MONITOR.
[2020-02-07 20:00] VITALS: BP 105/63
[2020-02-08 07:13] LABS: HEMATOCRIT 29.1 % (42.0-54.0); HEMOGLOBIN 9.6 g/dL (13.5-17.5); MCH 30.8 pg (26.0-34.0); MCV 93.3 fL (80.0-100.0); MEAN PLATELET VOLUME 9.3 fL (7.4-10.4); RBC 3.12 10x6/uL (4.20-6.10); RDW 16.9 % (11.5-14.5); WBC 7.3 10x3/uL (4.8-10.8)
[2020-02-08 07:15] LABS: PLATELET COUNT 248 10x3/uL (130-400)
[2020-02-08 07:21] LABS: CALC OSMOLALITY 273 mosm/kg (275-300); CALCIUM 8.9 mg/dL (8.5-10.1); CARBON DIOXIDE 28.6 mmol/L (21.0-32.0); CHLORIDE - SERUM 101 mmol/L (98-107); CREATININE - SERUM 0.9 mg/dL (0.6-1.3); GLUCOSE 72 mg/dL (74-106); POTASSIUM - SERUM 3.7 mmol/L (3.5-5.1); SODIUM 137 mmol/L (136-145); eGFR NON AFRICAN AMERICAN 90 mL/min (90-120)
[2020-02-08 07:26] LABS: UREA NITROGEN 14 mg/dL (7-18)
[2020-02-08 07:54] LABS: EOSINOPHILS 7 % (0-7); LYMPHOCYTES 21 % (15-50); MONOCYTES 3 % (2-11); NEUTROPHILS 67 % (40-80); PLATELET ESTIMATE NORMAL; ROULEAUX OCC; TARGET CELLS OCC; TEAR DROP CELLS OCC
[2020-02-08 09:17] VITALS: BP 105/60
[2020-02-08 13:21] VITALS: BP 140/87; BP 85/55
--- NOTE | 2020-02-08 18:37 | NUR ---
PATIENT DRESSING CHANGED AT THIS TIME. WET TO DRY COMPLETED WITH NS. WOUNDS ARE PINK WITH SMALL AMOUNT OF BLOODY DRAINAGE. OLD DRESSING WITH DARK OLD BLOODY DRAINAGE. PATIENT TOLERATED WITH SMALL AMOUNT OF PAIN. IV INTACT. ULTRAM GIVEN. CALL LIGHT WITHIN REACH.
[2020-02-08 19:09] VITALS: BP 107/62
--- NOTE | 2020-02-08 19:37 | NUR ---
PATIENT RESTING IN BED WITH NO S/S OF DISTRESS AND DENIES NEEDS AT THIS TIME. BED IN LOWEST POSITION AND CALL LIGHT WITHIN REACH. ENCOURAGED THE PATIENT TO CALL IF HE HAS NEEDS. WILL CONTINUE TO MONITOR.
[2020-02-08 20:00] VITALS: BP 93/56
--- NOTE | 2020-02-08 20:36 | NUR ---
PAGED DR. IQBAL, PLATE PAINTER APPRENTICE, IN REGARDS TO PATIENT 8/10 PAIN. PATIENT STATES PAIN IS NOT GETTING BETTER WITH ULTRAM.
[2020-02-09] VITALS: BP 107/65
[2020-02-09 04:00] VITALS: BP 97/66
[2020-02-09 08:56] VITALS: BP 97/64
[2020-02-09 12:39] VITALS: BP 96/68
--- NOTE | 2020-02-09 12:44 | NUR ---
OT NOTE: PT PERFORMED VERY WELL TODAY. SUPINE TO SIT AND SIT TO SUPINE WITH VERY MINIMAL ASSIST; IN ROOM AMB WITH WALKER WITH MIN ASSIST. SIMPLE GROOMING WITH SET UP; MOD ASSIST TO VIRIDIANA SOCKS. FEEDING WITH SET UP; PT AMB WITH OT AND PT WITH WALKER, GAIT BELT, MOD VC FOR WALKER MGMT AND STAYING UP INSIDE THE WALKER. PTS LES ARE WEAK AND SHUFFLES HIS FEET DUE TO IMPAIREMENT WITH DORSIFLEXION.. HE IS VERY UNSAFE FOR LONG DISTANCES WITHOUT ASSIST DUE TO CONSTANT CUEING FOR USE OF WALKER, HOWEVER, PT DID AMB 250 FT TODAY. EXTREMELY FATIGUED TODAY UPON RETURN TO ROOM...SEVERAL REST BREAKS REQUIRED. DENNIS OBANDO, OTR/L [phone]
--- NOTE | 2020-02-09 16:50 | MORECARE ---
CASE MANAGEMENT DISCHARGE SUMMARY PATIENT: MELE ACOSTA UNIT: [id number] ADM DATE: 02/02/20 AGE: 64 : 55 SEX: M ROOM/BED: D.2227 AUTHOR: VALENTINE,DOC PHYSICIAN: REFERRING PHYSICIAN: AMADOR PERALES MD DATE OF SERVICE: 02/09/20 Discharge Plan Patient Name: MELE ACOSTA Facility: [facility]:[place] : 1955 Planned Disposition: Detention Facility Anticipated Discharge Date: Discharge Date: Expected LOS: Initial Reviewer: [email or web address] Initial Review Date: 02/09/2020 Generated: 02/09/20 5:49 pm Comments DCP- Discharge Planning Updated by [id number]: Arline Larson on 02/09/20 3:[address] Patient Name: MELE ACOSTA Admission Status: ER Accout number: [id number] Admission Date: 02-02-2020 : 1955 Admission Diagnosis:OTH DISORDERS OF ELECTROLYTE AND FLUID BALANCE, NEC Attending: AMADOR PERALES Current LOS: 7 Anticipated DC Date: Planned Disposition: Detention Facility Primary Insurance: [facility] MEDICARE SOLUTIONS Discharge Planning Comments: CM met with patient at bedside after explaining CM role and obtaining verbal consent. CM discussed availability / needs of home health, REHAB and medical equipment. PATIENT WANTED [facility] BUT INSURANCE DENIED INPATIENT. I SPOKE WITH PATIENT TODAY AND WOULD LIKE A SNF FOR REHAB. A[facility] SIGNED, I AM FAXING REFERRAL TO [facility] WITH [facility] FOR A NETWORK OF SNF'S. WAITING CALL BACK TOMORROW. Picker Machine Operator: Arline Larson DCPIA - Discharge Planning Initial Assessment Updated by [id number]: Arline Larson on 02/09/20 4:43 pm * Is the patient Alert and Oriented? Yes * PCP DIAZ * Preadmission Environment Home Alone * ADLs Independent * Other Equipment WALKER * Community resources currently utilized Home Health * Please name any agencies selected above. [facility] * Additional services required to return to the preadmission environment? Yes * Can the patient safely return to the preadmission environment? Yes * Has this patient been hospitalized within the prior 30 days at any hospital? No Coverage Notice Reviewer: [email or web address] - Arline Larson Notice Issued Date-Time: 02/09/2020 16:44 Notice Type: Patient Choice Letter Notice Delivered To: Patient Relationship to Patient: Application Defense Manager Name: Delivery Method: HAND - Hand Delivered Karen Days: Prior Verbal Notification: Recipient Understood Notice: Yes Recipient Signature: Yes Med Rec Note Co-signed by Attending: Coverage Notice Comment: [facility] SNF ANY INSURCANSE TAKES. Patient Name: MELE ACOSTA Page [phone] at 1650 All edits/amendments must be made on the electronic document DICTATION DATE: 02/09/201649 TURNING SANDER OPERATOR: TIFF 02/09/201649 RPT#: [id number] DC DATE: STATUS: ADM IN [facility] [address] [place] [address] END OF REPORT
--- NOTE | 2020-02-09 16:58 | MORECARE ---
CASE MANAGEMENT DISCHARGE SUMMARY PATIENT: MELE ACOSTA UNIT: [id number] ADM DATE: 02/02/20 AGE: 64 : 55 SEX: M ROOM/BED: D.2227 AUTHOR: VALENTINE,DOC PHYSICIAN: REFERRING PHYSICIAN: AMADOR PERALES MD DATE OF SERVICE: 02/09/20 Discharge Plan Patient Name: MELE ACOSTA Facility: [facility]:[place] : 1955 Planned Disposition: Half-Way Facility Anticipated Discharge Date: Discharge Date: Expected LOS: Initial Reviewer: [id number] Initial Review Date: 02/09/2020 Generated: 02/09/20 5:57 pm Comments DCP- Discharge Planning Updated by [id number]: Arline Larson on 02/09/20 3:[address] Patient Name: MELE ACOSTA Admission Status: ER Accout number: [id number] Admission Date: 02-02-2020 : 1955 Admission Diagnosis:OTH DISORDERS OF ELECTROLYTE AND FLUID BALANCE, NEC Attending: AMADOR PERALES Current LOS: 7 Anticipated DC Date: Planned Disposition: Half-Way Facility Primary Insurance: [facility] MEDICARE SOLUTIONS Discharge Planning Comments: CM met with patient at bedside after explaining CM role and obtaining verbal consent. CM discussed availability / needs of home health, REHAB and medical equipment. PATIENT WANTED [facility] BUT INSURANCE DENIED INPATIENT. I SPOKE WITH PATIENT TODAY AND WOULD LIKE A SNF FOR REHAB. ANA MARIA SIGNED, I AM FAXING REFERRAL TO [facility] WITH [facility]KINS FOR A NETWORK OF SNF'S. WAITING CALL BACK TOMORROW. Equipment Detailer: Arline Larson DCPIA - Discharge Planning Initial Assessment Updated by [id number]: Arline Larson on 02/09/20 4:43 pm * Is the patient Alert and Oriented? Yes * PCP DIAZ * Preadmission Environment Home Alone * ADLs Independent * Other Equipment WALKER * Community resources currently utilized Home Health * Please name any agencies selected above. [facility] * Additional services required to return to the preadmission environment? Yes * Can the patient safely return to the preadmission environment? Yes * Has this patient been hospitalized within the prior 30 days at any hospital? No External Providers External Provider: [facility] Next Contact Date: Service Request Date: Service Type: Resolution: Reviewer: Comments: Coverage Notice Reviewer: [id number] Romulo Arline Marsha Notice Issued Date-Time: 02/09/2020 16:44 Notice Type: Patient Choice Letter Notice Delivered To: Patient Relationship to Patient: Lay Midwife Name: Delivery Method: HAND - Hand Delivered Karen Days: Prior Verbal Notification: Recipient Understood Notice: Yes Recipient Signature: Yes Med Rec Note Co-signed by Attending: Coverage Notice Comment: [facility] SNF ANY INSURCANSE TAKES. Last DP export: 02/09/20 3:50 p Patient Name: MELE ACOSTA Page [id number] at 1658 All edits/amendments must be made on the electronic document DICTATION DATE: 02/09/201657 CORRECTIVE THERAPIST: TIFF 02/09/201657 RPT#: [id number] DC DATE: STATUS: ADM IN [facility] [address] [place] [address] END OF REPORT
--- NOTE | 2020-02-09 18:42 | NUR ---
I have reviewed this patient and I concur with the Shift Assessment completed by the Licensed Practical Nurse today this shift.
[2020-02-09 18:45] VITALS: BP 112/73
[2020-02-09 20:00] VITALS: BP 115/73
--- NOTE | 2020-02-09 20:35 | NUR ---
SITTING UP IN BED. REQUESTED SANDWICH. ALERT AND ORIENTED X3. CONFUSED TO TIME. RESP IRREG. O2 @ 2LNC. RATES PAIN IN RT THIGH 8. MEDICATED WITH ULTRAM AND VISTARIL ORDERED. SALINE LOCK NOTED TO LT FOREARM. DRSG NOTED TO RT THIGH, ANKLES, TOES. SCABS AND BRUISES NOTED TO BUE. TELEMETRY SHOWS SR WITH RATE OF 76. SR ELEVATED X2. CL IN REACH. BED ALARM ON FOR PT SAFETY
--- NOTE | 2020-02-10 01:41 | NUR ---
COMPLETE LINEN CHANGE PERFORMED AT THIS TIME.
--- NOTE | 2020-02-10 01:47 | NUR ---
MEDICATED WITH VISTARIL AND ULTRAM FOR C/O PAIN IN RT LEG RATING 8. CL IN REACH.
[2020-02-10 04:00] VITALS: BP 121/80
--- NOTE | 2020-02-10 06:19 | NUR ---
MEDICATED WITH ULTRAM AND VISTARIL FOR C/O PAIN IN RT LEG RATING 8. CL IN REACH. BED ALARM ON FOR PT SAFETY.
--- NOTE | 2020-02-10 07:21 | NUR ---
ALERT AND ORIENTED. LUNGS DIMINISHED BILATERALLY. HEART SOUNDS S1 AND S2 HEARD IN ALL JON. BOWEL SOUNDS ACTIVE X 4. IV TO LFA PATENT WITHOUT REDNESS. DENIES NEEDS. BED LOW. BED ALARM ON. CALL VALENTINE AND PERSONAL ITEMS IN REACH. WILL CONTINUE TO MONITOR.
[2020-02-10 09:13] VITALS: BP 111/71
--- NOTE | 2020-02-10 10:26 | NUR ---
DRSG CHANGED TO RIGHT UPPER THIGH PER ORDER. DRSGS CHANGED TO BILATERAL FEET. WILL SPEAK WITH PRIMARY CARE ABOUT WOUND CARE ORDER FOR BILATERAL FEET. PATIENT STATES DRSGS ARE TO BE DONE DAILY AND PAINT TOES WITH IODINE PER "FOOT DOCTOR." DOES NOT KNOW NAME OF "FOOT DOCTOR."
--- NOTE | 2020-02-10 10:26 | MORECARE ---
CASE MANAGEMENT DISCHARGE SUMMARY PATIENT: MELE ACOSTA UNIT: [id number] ADM DATE: 02/02/20 AGE: 64 : 55 SEX: M ROOM/BED: D.2227 AUTHOR: VALENTINE,DOC PHYSICIAN: REFERRING PHYSICIAN: AMADOR PERALES MD DATE OF SERVICE: 02/10/20 Discharge Plan Patient Name: MELE ACOSTA Facility: [facility]:[place] : 1955 Planned Disposition: Usp Facility Anticipated Discharge Date: Discharge Date: Expected LOS: Initial Reviewer: [id number] Initial Review Date: 02/09/2020 Generated: 02/10/20 11:26 am Comments DCP- Discharge Planning Updated by [id number]: Arline Larson on 02/10/20 9:[address] Patient Name: MELE ACOSTA Admission Status: ER Accout number: [id number] Admission Date: 02-02-2020 : 1955 Admission Diagnosis:OTH DISORDERS OF ELECTROLYTE AND FLUID BALANCE, NEC Attending: AMADOR PERALES Current LOS: 8 Anticipated DC Date: Planned Disposition: Usp Facility Primary Insurance: [facility] MEDICARE SOLUTIONS Discharge Planning Comments: SPOKE WITH SNEHA GIORDANO WITH THE [facility] AND FAXED UPDATED THERAPY NOTES. SHE IS COMING OUT TO SEE THE PATIENT TODAY FOR POSSIBLE ASSISTED CARE AT THE [facility]. Division Merchandise Manager: Arline Larson DCP- Discharge Planning Updated by [id number]: Arline Larson on 02/09/20 3:[address] Patient Name: MELE ACOSTA Admission Status: ER Accout number: [id number] Admission Date: 02-02-2020 : 1955 Admission Diagnosis:OTH DISORDERS OF ELECTROLYTE AND FLUID BALANCE, NEC Attending: AMADOR PERALES Current LOS: 7 Anticipated DC Date: Planned Disposition: Usp Facility Primary Insurance: [facility] MEDICARE SOLUTIONS Discharge Planning Comments: CM met with patient at bedside after explaining CM role and obtaining verbal consent. CM discussed availability / needs of home health, REHAB and medical equipment. PATIENT WANTED [facility] BUT INSURANCE DENIED INPATIENT. I SPOKE WITH PATIENT TODAY AND WOULD LIKE A SNF FOR REHAB. ANA MARIA SIGNED, I AM FAXING REFERRAL TO [facility] WITH [facility] FOR A NETWORK OF SNF'S. WAITING CALL BACK TOMORROW. Division Merchandise Manager: Arline Larson DCPIA - Discharge Planning Initial Assessment Updated by [id number]: Arline Larson on 02/09/20 4:43 pm * Is the patient Alert and Oriented? Yes * PCP DIAZ * Preadmission Environment Home Alone * ADLs Independent * Other Equipment WALKER * Community resources currently utilized Home Health * Please name any agencies selected above. [facility] * Additional services required to return to the preadmission environment? Yes * Can the patient safely return to the preadmission environment? Yes * Has this patient been hospitalized within the prior 30 days at any hospital? No Coverage Notice Reviewer: [id number] - Arline Larson Notice Issued Date-Time: 02/09/2020 16:44 Notice Type: Patient Choice Letter Notice Delivered To: Patient Relationship to Patient: Metal Extrusion Supervisor Name: Delivery Method: HAND - Hand Delivered Karen Days: Prior Verbal Notification: Recipient Understood Notice: Yes Recipient Signature: Yes Med Rec Note Co-signed by Attending: Coverage Notice Comment: [facility] SN[facility] ANY INSURCANSE TAKES. Last DP export: 02/09/20 3:58 p Patient Name: MELE ACOSTA Page [phone] at 1026 All edits/amendments must be made on the electronic document DICTATION DATE: 02/10/20 1026 CHEMICAL SUPERVISOR: TIFF 02/10/20 1026 RPT#: [id number] DC DATE: STATUS: ADM IN [facility] [address] [place] [address] END OF REPORT
--- NOTE | 2020-02-10 10:32 | NUR ---
SPOKE WITH HORTENCIA, DR PERALES'S NURSE, WHO STATES WILL SPEAK WITH MD ABOUT WOUND CARE FOR FEET AND POSSIBLE CONSULT AND WILL CALL BACK.
--- NOTE | 2020-02-10 10:33 | NUR ---
TELEMETRY NORMAL SINUS 78 ON MONITOR.
--- NOTE | 2020-02-10 10:51 | NUR ---
CONSULT FOR DR BALDERAS PLACED PER DR PERALES.
--- NOTE | 2020-02-10 11:43 | NUR ---
PATIENT SITTING UP IN CHAIR AT BEDSIDE. DENIES NEEDS. WILL CONTINUE TO MONITOR.
[2020-02-10 12:56] VITALS: BP 92/60
--- NOTE | 2020-02-10 14:56 | NUR ---
OT NOTE: PT PERFORMED SLIGHTLY BETTER TODAY. BED MOB WITH VERY MINIMAL ASSIST; MAX ASSIST TO VIRIDIANA SOCKS; SET UP TO WASH FACE, HANDS, AND MIN ASSIST TO VIRIDIANA GOWN. UE/LE AROM EXS WHILE SITTING ON EOB. PT AMB INTO HALLWAY WITH USE OF WALKER AND MIN/MOD ASSIST. CONSTANT CUEING FOR WALKER MGMT AND WALKING INSIDE THE WALKER VS PUSHING IT LIKE AN LAWNMOWER.. PT UNABLE TO PERFORM WITHOUT CONSTANT CUES AND ASSIST WITH MOVING WALKER. DENNIS OBANDO, OTR/L 140-370
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
--- NOTE | 2020-02-10 17:18 | NUR ---
OT NOTE: PT COMPLETED SUPINE TO SIT WITH CGA. PT COMPLETED EOB SITTING WITH SPV. PT COMPLETED SIT TO STAND WITH CGA. PT COMPLETED FACE WASH WITH SETUP. 4-280 THANK YOU,NIRALI RUTH
[2020-02-10 17:51] VITALS: BP 101/69
--- NOTE | 2020-02-10 19:45 | NUR ---
LYING IN BED. DR BALDERAS JUST CHANGED PTS DRSG ON LT FOOT. ALERT AND ORIENTED TO SELF, PLACE AND SITUATION, CONFUSED TO TIME. RESP NONLABORED. O2 @ 3LNC. TELEMETRY SHOWS SB WITH RATE OF 58. SCABS NOTED ALL OVER BODY. BRUISES TO BUE AND BLE. DRSG NOTED TO RT THIGH IS C/D/I. SALINE LOCK NOTED TO LT FOREARM. DRSG NOTED TO TRACH STOMA. BED ALARM ON FOR PT SAFETY. GEN WEAKNESS NOTED. SR ELEVATED X2. CL IN REACH. DENIES PAIN.
[2020-02-10 20:00] VITALS: BP 101/52
--- NOTE | 2020-02-10 23:01 | NUR ---
LYING IN BED WITH EYES CLOSED. RESP NONLABORED. NO DISTRESS. CL IN REACH. BED ALARM ON.
[2020-02-11] VITALS: BP 127/75
--- NOTE | 2020-02-11 01:02 | NUR ---
MEDICATED WITH ULTRAM AND VISTARIL FOR C/O PAIN IN RT THIGH RATING 8. CL IN REACH. BED ALARM ON
--- NOTE | 2020-02-11 03:37 | NUR ---
LYING IN BED WITH EYES CLOSED. RESP NONLABORED. O2 IN USE. NO DISTRESS. CL IN REACH. BED ALARM ON
[2020-02-11 04:00] VITALS: BP 110/62
--- NOTE | 2020-02-11 05:51 | NUR ---
MEDICATED WITH ULTRAM AND VISTARIL FOR C/O RT LEG PAIN. LINENS CHANGED PER SUPERINTENDENT STATIONS. PT EMPTIES URINAL ON BED LINENS.
--- NOTE | 2020-02-11 08:00 | NUR ---
PT RESTING IN BED WITH EYES OPEN CALL LIGHT IN REACH WILL MONITER
--- NOTE | 2020-02-11 08:21 | MORECARE ---
CASE MANAGEMENT DISCHARGE SUMMARY PATIENT: MELE ACOSTA UNIT: [id number] ADM DATE: 02/02/20 AGE: 64 : 55 SEX: M ROOM/BED: D.2227 AUTHOR: VALENTINEDOC PHYSICIAN: REFERRING PHYSICIAN: AMADOR PERALES MD DATE OF SERVICE: 02/11/20 Discharge Plan Patient Name: MELE ACOSTA Facility: [facility]:[place] : 1955 Planned Disposition: Correction Facility Anticipated Discharge Date: Discharge Date: Expected LOS: Initial Reviewer: [id number] Initial Review Date: 02/09/2020 Generated: 02/11/20 9:20 am DCP- Discharge Planning Updated by [email or web address]: Arline Larson on 02/11/20 7:[address] Patient Name: MELE ACOSTA Admission Status: ER Accout number: [id number] Admission Date: 02-02-2020 : 1955 Admission Diagnosis:OTH DISORDERS OF ELECTROLYTE AND FLUID BALANCE, NEC Attending: AMADOR PERALES Current LOS: 9 Anticipated DC Date: Planned Disposition: Correction Facility Primary Insurance: [facility] MEDICARE SOLUTIONS Discharge Planning Comments: AUTH APPROVED FOR SNF AT THE [facility]. UPDATES FAXED TO [facility]. WAITING CALL BACK FOR BOTTOM STOP ATTACHER TIME. Electrical Equipment Technician: Arline Larson DCP- Discharge Planning Updated by [id number]: Arline Larson on 02/10/20 9:[address] Patient Name: MELE ACOSTA Admission Status: ER Accout number: [id number] Admission Date: 02-02-2020 : 1955 Admission Diagnosis:OTH DISORDERS OF ELECTROLYTE AND FLUID BALANCE, NEC Attending: AMADOR PERALES Current LOS: 8 Anticipated DC Date: Planned Disposition: Correction Facility Primary Insurance: [facility] MEDICARE SOLUTIONS Discharge Planning Comments: SPOKE WITH SNEHA GIORDANO WITH THE [facility] AND FAXED UPDATED THERAPY NOTES. SHE IS COMING OUT TO SEE THE PATIENT TODAY FOR POSSIBLE PRISON CARE AT THE [facility]. Electrical Equipment Technician: Arline Larson DCP- Discharge Planning Updated by [id number]: Arline Larson on 02/09/20 3:[address] Patient Name: MELE ACOSTA Admission Status: ER Accout number: [id number] Admission Date: 02-02-2020 : 1955 Admission Diagnosis:OTH DISORDERS OF ELECTROLYTE AND FLUID BALANCE, NEC Attending: AMADOR PERALES Current LOS: 7 Anticipated DC Date: Planned Disposition: Correction Facility Primary Insurance: [facility] MEDICARE SOLUTIONS Discharge Planning Comments: CM met with patient at bedside after explaining CM role and obtaining verbal consent. CM discussed availability / needs of home health, REHAB and medical equipment. PATIENT WANTED [facility] BUT INSURANCE DENIED INPATIENT. I SPOKE WITH PATIENT TODAY AND WOULD LIKE A SNF FOR REHAB. ANA MARIA SIGNED, I AM FAXING REFERRAL TO [facility] WITH [facility] FOR A NETWORK OF SNF'S. WAITING CALL BACK TOMORROW. Electrical Equipment Technician: Arline Larson DCPIA - Discharge Planning Initial Assessment Updated by [id number]: Arline Larson on 02/09/20 4:43 pm * Is the patient Alert and Oriented? Yes * PCP DIAZ * Preadmission Environment Home Alone * ADLs Independent * Other Equipment WALKER * Community resources currently utilized Home Health * Please name any agencies selected above. [facility] * Additional services required to return to the preadmission environment? Yes * Can the patient safely return to the preadmission environment? Yes * Has this patient been hospitalized within the prior 30 days at any hospital? No Coverage Notice Reviewer: [id number] - Arline Larson Notice Issued Date-Time: 02/09/2020 16:44 Notice Type: Patient Choice Letter Notice Delivered To: Patient Relationship to Patient: Movie Writer Name: Delivery Method: HAND - Hand Delivered Karen Days: Prior Verbal Notification: Recipient Understood Notice: Yes Recipient Signature: Yes Med Rec Note Co-signed by Attending: Coverage Notice Comment: [facility] SNF ANY INSURCANSE TAKES. Last DP export: 02/10/20 9:26 am Patient Name: MELE ACOSTA Page [phone] at 0821 All edits/amendments must be made on the electronic document DICTATION DATE: 02/11/20819 FACTORY ENGINEER: TIFF 02/11/20819 RPT#: [id number] DC DATE: STATUS: ADM IN [facility] [address] [place] [address] END OF REPORT
[2020-02-11] MEDS ORDERED: VISTARIL25 MG PO (08:40)
[2020-02-11] MEDS ORDERED: MELATONIN 3 MG1 TAB PO (08:41)
[2020-02-11 09:35] VITALS: BP 111/65
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
[2020-02-11 13:25] VITALS: BP 92/48
--- NOTE | 2020-02-11 16:06 | NUR ---
LYING IN BED,WITHOUT DISTRESS.
--- NOTE | 2020-02-11 16:49 | NUR ---
PT RESTING IN BED WITH EYES OPEN CALL LIGHT IN REACH NO PROBLEMS WILL MONITER
[2020-02-11 17:36] VITALS: BP 93/55
[2020-02-11 19:38] VITALS: BP 98/50
--- NOTE | 2020-02-11 19:45 | NUR ---
LYING IN BED. ALERT AND ORIENTED X3. CONFUSED TO TIME. O2 @ 3L/NC. RESP IRREG. TRACH STOMA HAS DRSG COVERING IT. DRSG NOTED TO LT FOOT. DRSG NOTED TO RT THIGH. TELEMETRY SHOWS SR WITH RATE OF 80. BRUISES AND SCABS NOTED TO ENTIRE BODY. TREMORS NOTED TO UPPER EXTREMITIES. SALINE LOCK NOTED TO LT FOREARM. BED ALARM ON FOR PT SAFETY. SR ELEVATED X2. CL IN REACH.
--- NOTE | 2020-02-12 00:47 | NUR ---
LYING IN BED WITH EYES CLOSED. RESP EVEN AND NONLABORED. NO DISTRESS. SR ELEVATED X2. CL IN REACH. BED ALARM ON
[2020-02-12 04:00] VITALS: BP 95/55
--- NOTE | 2020-02-12 06:16 | NUR ---
ATE SEVERAL SNACKS DURING THE NIGHT. LYING IN BED AT THIS TIME WITH EYES CLOSED. RESP NONLABORED. SR ELEVATED X3. CL IN REACH. BED ALARM ON.
--- NOTE | 2020-02-12 07:47 | NUR ---
PATIENT IN BED RESTING. BED LOW POSITION, CALL LIGHT IN REACH. DENIES PAIN OR NEEDS. WILL CONTINUE TO MONITOR.
--- NOTE | 2020-02-12 10:08 | NUR ---
DISCHARGE TEACHING COMPLETE. NO FURTHER QUESTIONS. LEFT FOREARM IV REMOVED. CATH TIP INTACT. DENIES NEEDS. BELONGINGS GATHERED. AWAITING TRANSPORT TO SKILLED FACILITY.
[2020-02-12 10:22] VITALS: BP 95/53
--- NOTE | 2020-02-12 10:37 | NUR ---
PATIENT LEFT UNIT VIA WHEELCHAIR TO SKILLED FACILITY. BELONGINGS TAKEN WITH.
--- NOTE | 2020-02-13 09:32 | MORECARE ---
CASE MANAGEMENT DISCHARGE SUMMARY PATIENT: MELE ACOSTA UNIT: [id number] ADM DATE: 02/02/20 AGE: 64 : 55 SEX: M ROOM/BED: D.2227 AUTHOR: EDWINA GRIJALVA PHYSICIAN: REFERRING PHYSICIAN: AMADOR PERALES MD DATE OF SERVICE: 02/13/20 Discharge Plan Patient Name: MELE ACOSTA Facility: [facility]:[place] : 1955 Planned Disposition: Senior Living Facility Anticipated Discharge Date: Discharge Date: 02/12/2020 Expected LOS: Initial Reviewer: [id number] Initial Review Date: 02/09/2020 Generated: 02/13/20 10:31 am DCP- Discharge Planning Updated by [id number]: Arline Larson on 02/11/20 7:[address] Patient Name: MELE ACOSTA Admission Status: ER Accout number: [id number] Admission Date: 02-02-2020 : 1955 Admission Diagnosis:OTH DISORDERS OF ELECTROLYTE AND FLUID BALANCE, NEC Attending: AMADOR PERALES Current LOS: 9 Anticipated DC Date: Planned Disposition: Senior Living Facility Primary Insurance: [facility] MEDICARE SOLUTIONS Discharge Planning Comments: AUTH APPROVED FOR SNF AT THE [facility]. UPDATES FAXED TO [facility]. WAITING CALL BACK FOR TEMPLATE INSPECTOR TIME. Document Imaging Manager: Arline Larson DCP- Discharge Planning Updated by [id number]: Arline Larson on 02/10/20 9:[address] Patient Name: MELE ACOSTA Admission Status: ER Accout number: [id number] Admission Date: 02-02-2020 : 1955 Admission Diagnosis:OTH DISORDERS OF ELECTROLYTE AND FLUID BALANCE, NEC Attending: AMADOR PERALES Current LOS: 8 Anticipated DC Date: Planned Disposition: Senior Living Facility Primary Insurance: [facility] MEDICARE SOLUTIONS Discharge Planning Comments: SPOKE WITH SNEHA GIORDANO WITH THE [facility] AND FAXED UPDATED THERAPY NOTES. SHE IS COMING OUT TO SEE THE PATIENT TODAY FOR POSSIBLE SNF CARE AT THE [facility]. Document Imaging Manager: Arline Larson DCP- Discharge Planning Updated by [id number]: Arline Larson on 02/09/20 3:[address] Patient Name: MELE ACOSTA Admission Status: ER Accout number: [id number] Admission Date: 02-02-2020 : 1955 Admission Diagnosis:OTH DISORDERS OF ELECTROLYTE AND FLUID BALANCE, NEC Attending: AMADOR PERALES Current LOS: 7 Anticipated DC Date: Planned Disposition: Senior Living Facility Primary Insurance: [facility] MEDICARE SOLUTIONS Discharge Planning Comments: CM met with patient at bedside after explaining CM role and obtaining verbal consent. CM discussed availability / needs of home health, REHAB and medical equipment. PATIENT [facility] BUT INSURANCE DENIED INPATIENT. I SPOKE WITH PATIENT TODAY AND WOULD LIKE A SNF FOR REHAB. ANA MARIA SIGNED, I AM FAXING REFERRAL TO [facility] WITH [facility] FOR A NETWORK OF SNF'S. WAITING CALL BACK TOMORROW. Document Imaging Manager: Arline Larson DCPIA - Discharge Planning Initial Assessment Updated by [id number]: Arline Larson on 02/09/20 4:43 pm * Is the patient Alert and Oriented? Yes * PCP DIAZ * Preadmission Environment Home Alone * ADLs Independent * Other Equipment WALKER * Community resources currently utilized Home Health * Please name any agencies selected above. [facility] * Additional services required to return to the preadmission environment? Yes * Can the patient safely return to the preadmission environment? Yes * Has this patient been hospitalized within the prior 30 days at any hospital? No Coverage Notice Reviewer: [email or web address] Romulo Larson Notice Issued Date-Time: 02/09/2020 16:44 Notice Type: Patient Choice Letter Notice Delivered To: Patient Relationship to Patient: Grab Hooker Name: Delivery Method: HAND - Hand Delivered Karen Days: Prior Verbal Notification: Recipient Understood Notice: Yes Recipient Signature: Yes Med Rec Note Co-signed by Attending: Coverage Notice Comment: [facility] SNF ANY INSURCANSE TAKES. Reviewer: [id number] Romulo Larson Notice Issued Date-Time: 02/11/2020 8:22 Notice Type: IM Discharge Notice Notice Delivered To: Patient Relationship to Patient: Grab Hooker Name: Delivery Method: HAND - Hand Delivered Karen Days: Prior Verbal Notification: Recipient Understood Notice: Yes Recipient Signature: Yes Med Rec Note Co-signed by Attending: Coverage Notice Comment: Last DP export: 02/11/20 7:21 am Patient Name: MELE ACOSTA Page [phone] at 0932 All edits/amendments must be made on the electronic document DICTATION DATE: 02/13/20930 SYSTEMS MECHANIC: TIFF 02/13/20930 RPT#: [id number] DC DATE:02/12/20 STATUS: DIS IN [facility] [address] [place] [address] END OF REPORT
== END 2020-02-12 10:38 | DRG 622 ==
LOC: D.ER 20:12 → D.MS 23:07 → D.EDHOLD 23:07 → D.MS 02-03 01:23
PROVIDERS: Family Medicine; Surgery; ADMIT Family Medicine; ATTEND Family Medicine
PROC: 0JBL0ZZ Excision of Right Upper Leg Subcutaneous Tissue and Fascia, Open Approach (ICD-10-PCS; principal; 2020-02-06 10:30)
DX: E87.8 Other disorders of electrolyte and fluid balance, not elsewhere classified (principal); E43 Unspecified severe protein-calorie malnutrition; T24.311A Burn of third degree of right thigh, initial encounter; F10.239 Alcohol dependence with withdrawal, unspecified; E46 Unspecified protein-calorie malnutrition; Z68.1 Body mass index [BMI] 19.9 or less, adult; J95.00 Unspecified tracheostomy complication; R62.7 Adult failure to thrive; R53.1 Weakness

== ENCOUNTER → 2020-03-15 19:39 | Outpatient (CLI) | payer MEDICARE, MEDICAID ==
[2020-02-05 14:11] VITALS: BMI 17.4
[~2020-03-15 19:39] MED LIST changes: +HYDROCODON-ACE1 EA10 PO; +MELATONIN 3 MG1 TAB PO; +PROZAC20 MG PO; +VISTARIL25 MG PO
== END | disposition home or self-care (01) ==
LOC: D.LABREF 19:39
PROVIDERS: ATTEND Podiatrist Foot & Ankle Surgery
DX: M86.8X7 Other osteomyelitis, ankle and foot (principal)

== ENCOUNTER → 2020-03-22 20:54 | Outpatient (CLI) | payer MEDICARE, MEDICAID ==
[2020-02-05 14:11] VITALS: BMI 17.4
== END | disposition home or self-care (01) ==
LOC: D.LABREF 20:54
PROVIDERS: ATTEND Podiatrist Foot & Ankle Surgery
DX: M86.8X7 Other osteomyelitis, ankle and foot (principal)